=== PATIENT | male | born 1995 | race Caucasian/White ===

== ENCOUNTER 2019-02-08 15:32 | Emergency (ER) | payer OTHER ==
[2019-02-08 15:42] VITALS: BP 121/68; PULSE 88; RESP 18; TEMP 98.5
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
[2019-02-08] MEDS ORDERED: ACET/COD 300 MG/30 MG STARTER PACK 6 TAB BTL PO STA (16:48)
== END 2019-02-08 17:00 | disposition home or self-care (01) ==
LOC: EC 15:32
DX: S93.401A Sprain of unspecified ligament of right ankle, initial encounter (principal); X50.1XXA Overexertion from prolonged static or awkward postures, initial encounter; Y93.53 Activity, golf
CPT/HCPCS: 29515; 99283